=== PATIENT | female | born 1990 | race Caucasian/White ===

== ENCOUNTER 2016-12-19 20:36 | Emergency (ER) | payer BC ==
[~2016-12-19] VITALS: Ht 154.9 cm; Wt 62.8 kg
[2016-12-19 20:43] VITALS: TEMP 36.7; Ht 154.9 cm; Wt 62.8 kg
[2016-12-19 22:04] LABS: BASO % 0.1 %; BASO ABS # 0.01 K/uL (0-0.2); COMPLETE YES; EOS % 2.4 %; HEMATOCRIT 36.6 % (37-47); IG% 0.3 %; LYMPH % 21.4 %; LYMPH ABS # 2.27 K/uL (1.2-3.4); MEAN CELL VOLUME 90.1 fL (80-100); MEAN CORPUSCULAR HEMOGLOBIN 31.5 pg (25-34); MEAN PLATELET VOLUME 9.6 fL (7.4-10.4); NEUT % 67.8 %; PLATELET COUNT 195 K/uL (130-400); RED BLOOD COUNT 4.06 M/uL (4.2-5.4); WHITE BLOOD COUNT 10.62 K/uL (4.8-10.8)
[2016-12-19 22:15] LABS: ALT/SGPT 20 U/L (12-78); BLOOD UREA NITROGEN 4 mg/dl (7-18); BUN/CREATININE RATIO 8.4 (10-20); CARBON DIOXIDE 24 mmol/L (21-32); CHLORIDE 105 mmol/L (98-107); CREATININE 0.49 mg/dl (0.60-1.20); GLUCOSE 86 mg/dl (70-99); SODIUM 137 mmol/L (136-145)
[2016-12-19 22:26] LABS: ALB/GLOB RATIO 0.8 (0.9-2); ALKALINE PHOSPHATASE 74 U/L (45-117); AST/SGOT 18 U/L (15-37)
--- NOTE | 2016-12-19 22:58 | EMERGENCY ROOM VISIT NOTE ---
History First contact with patient: 21:29 Chief Complaint: CARDIAC ASSESSMENT Stated Complaint: CHEST TIGHTNESS, HEART PALPATATIONS, 24WKS PREG Nursing Triage Summary: alpitation Patient reports intermittent chest tightness and palpitations since tuesday. Denies shortness of breath, reports fatigue. Pt reports she is 24 wk . Pt does report hx iintermittent palpitations. History of Present Illness The patient is a 26 year old female who presents to the Emergency Room with complaints of palpitations. Patient states she is 24 weeks . She sees [facility]. The patient states that she has had palpitations on and off for the past 3 days. She reports that she has felt more fatigued than usual and has been lightheaded at times when she stands up from a sitting position. She has intermittent sharp pains in the left upper chest which are not associated with the palpitations. She states these are shooting pains which last for 1-2 seconds, then go away. She reports that the palpitations seem to increase during the evening and night, but did not keep her up at night. She does have 1-2 episodes during the day. She denies any complications with this . She denies any shortness of breath or syncope. Review of Systems A complete 10 point review of systems was reviewed with the patient with pertinent positives and negatives as per history of present illness. All else were negative. Social History Smoking Status: Never Smoker Current/Historical Medications No Active Prescriptions or Reported Meds Physical Exam Vital Signs Date Time Temp Pulse Resp B/P (MAP) Pulse Ox O2 Delivery O2 Flow Rate FiO2 12/19/16 23:23 74 18 122/63 97 Room Air 12/19/16 22:52 71 103/57 91 123/69 85 111/68 12/19/16 21:30 72 12/19/16 21:01 Room Air 12/19/16 20:43 36.7 84 16 131/75 100 Room Air Physical Exam VITALS: Vitals are noted on the nurse's note and reviewed by myself. Vital signs stable. GENERAL: This is a 26-year-old female, in no acute distress, nondiaphoretic, well-developed well-nourished. EARS: External auditory canals clear, tympanic membranes pearly cobos without erythema or effusion bilaterally. EYES: Pupils equal round and reactive to light and accommodation. MOUTH: Mucous membranes moist. NECK: Supple without nuchal rigidity. HEART: Regular rate and rhythm without murmurs gallops or rubs. LUNGS: Clear to auscultation bilaterally without wheezes, rales or rhonchi. ABDOMEN: Soft, nontender to palpation. NEURO: Patient was alert and oriented to person place and time. Medical Decision & Procedures Laboratory Results 12/19/16 21:10 Red Blood Count 4.06, Mean Corpuscular Volume 90.1, Mean Corpuscular Hemoglobin 31.5, Mean Corpuscular Hemoglobin Concent 35.0, Mean Platelet Volume 9.6, Neutrophils (%) (Auto) 67.8, Lymphocytes (%) (Auto) 21.4, Monocytes (%) (Auto) 8.0, Eosinophils (%) (Auto) 2.4, Basophils (%) (Auto) 0.1, Neutrophils # (Auto) 7.20, Lymphocytes # (Auto) 2.27, Monocytes # (Auto) 0.85, Eosinophils # (Auto) 0.26, Basophils # (Auto) 0.01 12/19/16 21:10 Test 12/19/16 21:10 White Blood Count 10.62 K/uL (4.8-10.8) Red Blood Count 4.06 M/uL (4.2-5.4) Hemoglobin 12.8 g/dL (12.0-16.0) Hematocrit 36.6 % (37-47) Mean Corpuscular Volume 90.1 fL (80-100) Mean Corpuscular Hemoglobin 31.5 pg (25-34) Mean Corpuscular Hemoglobin Concent 35.0 g/dl (32-36) Platelet Count 195 K/uL (130-400) Mean Platelet Volume 9.6 fL (7.4-10.4) Neutrophils (%) (Auto) 67.8 % Lymphocytes (%) (Auto) 21.4 % Monocytes (%) (Auto) 8.0 % Eosinophils (%) (Auto) 2.4 % Basophils (%) (Auto) 0.1 % Neutrophils # (Auto) 7.20 K/uL (1.4-6.5) Lymphocytes # (Auto) 2.27 K/uL (1.2-3.4) Monocytes # (Auto) 0.85 K/uL (0.11-0.59) Eosinophils # (Auto) 0.26 K/uL (0-0.5) Basophils # (Auto) 0.01 K/uL (0-0.2) RDW Standard Deviation 40.9 fL (36.4-46.3) RDW Coefficient of Variation 12.4 % (11.5-14.5) Immature Granulocyte % (Auto) 0.3 % Immature Granulocyte # (Auto) 0.03 K/uL (0.00-0.02) Anion Gap 8.0 mmol/L (3-11) Est Creatinine Clear Calc Drug Dose 145.1 ml/min Estimated GFR () > 150.0 Estimated GFR (Non- 132.6 BUN/Creatinine Ratio 8.4 (10-20) Calcium Level 9.0 mg/dl (8.5-10.1) Magnesium Level 2.0 mg/dl (1.8-2.4) Total Bilirubin 0.2 mg/dl (0.2-1) Aspartate Amino Transf (AST/SGOT) 18 U/L (15-37) Alanine Aminotransferase (ALT/SGPT) 20 U/L (12-78) Alkaline Phosphatase 74 U/L (45-117) Troponin I < 0.015 ng/ml (0-0.045) Total Protein 7.1 gm/dl (6.4-8.2) Albumin 3.2 gm/dl (3.4-5.0) Globulin 3.9 gm/dl (2.5-4.0) Albumin/Globulin Ratio 0.8 (0.9-2) Thyroid Stimulating Hormone (TSH) 1.350 uIu/ml (0.300-4.500) ECG Rate (beats per minute): 82 Rhythm: normal sinus Findings: nonspecific-ST abn, no acute ischemic change, no ectopy Comparison ECG Date: no prior available ED Course The patient was evaluated as above. Labs were drawn and IV access was obtained. Patient was reevaluated and findings were discussed. Patient denied complaints that this time. Discharge instructions were reviewed with the patient. The patient verbalized understanding of my assessment and treatment plan and was discharged home in good condition. Medical Decision Differential diagnosis includes arrhythmia, electrolyte abnormality, hyperthyroidism, anemia, dehydration, among others. The patient is a 26-year-old female who presents today complaining of palpitations. Patient is asymptomatic at the time of presentation. EKG does not show any ectopy. Labs are unremarkable, no leukocytosis, anemia or concerning electrolyte abnormalities. TSH indicates a euthyroid state. The etiology of the palpitations is unclear, but may just be related to . Orthostatic vital signs were mildly positive and this is likely causing the patient's lightheadedness when standing up. She was encouraged to increase fluids and stand up very slowly. She was advised to call her [facility] tomorrow morning to schedule a follow-up appointment for any further testing. She should return for any worsening symptoms. Based on the patient's presentation and work up, I feel the patient is stable for outpatient treatment. The patient was educated to return to the emergency department for any worsening of their current condition or new/concerning symptoms. She will follow up with [facility]. The patient's case was reviewed with Dr. Borrego, ED attending physician, who agreed with my assessment and treatment plan. Medication Reconcilliation Current Medication List: was personally reviewed by me Blood Pressure Screening Patient's blood pressure: Normal blood pressure Impression Primary Impression: Palpitations Departure Information Dispostion Home / Self-Care Condition GOOD Prescriptions No Active Prescriptions or Reported Meds Referrals Tawnya Smith D.O. (PCP) Patient Instructions [facility] Additional Instructions Follow-up with your [facility] tomorrow regarding your symptoms. Rest and stay well hydrated. Return here for any worsening palpitations, worsening pain, shortness of breath or anything new/concerning symptoms.
[2016-12-19 23:23] VITALS: BP 122/63; PULSE 74; O2SAT 97
== END 2016-12-19 23:25 | disposition home or self-care (01) ==
LOC: C.EDB 20:44
DX: R00.2 Palpitations (principal); O26.892 Other specified pregnancy related conditions, second trimester; Z3A.24 24 weeks gestation of pregnancy

== ENCOUNTER 2017-04-05 03:01 | Inpatient (IN) | payer BC, OTHER ==
[~2017-04-05] VITALS: Ht 154.9 cm; Wt 69.1 kg
[2017-04-15] MEDS ORDERED: LACTATED RINGER'S 1000ML 1,000 ML IV PRN (08:26)
--- NOTE | 2017-04-15 08:50 | Progress Note ---
Progress Note Date of Service Apr 15, 2017. Progress Note Admit Note 27 F P0000 at 41.3 weeks admitted for post-dates induction of labor. course was uncomplicated. GBS is negative. FHT Cat 1. Cervix is 1/50/-3/ vertex/posterior/firm. EFW is [address] 10 mg Cervidil for cervical ripening. Procedure discussed with patient and her .
[2017-04-15] MEDS ORDERED: DINOPROSTONE 10 MG INSERT PV ONE (09:00)
[2017-04-15 09:04] LABS: HEMATOCRIT 36.5 % (37-47); HEMOGLOBIN 13.5 g/dL (12.0-16.0); MEAN CELL VOLUME 88.8 fL (80-100); MEAN CORPUSCULAR HEMOGLOBIN 32.8 pg (25-34); MEAN PLATELET VOLUME 10.2 fL (7.4-10.4); PLATELET COUNT 148 K/uL (130-400); RED CELL DISTRIBUTION WIDTH CV 12.8 % (11.5-14.5); RED CELL DISTRIBUTION WIDTH SD 41.1 fL (36.4-46.3)
[2017-04-15] MEDS ORDERED: PREN-63 (09:30)
[2017-04-15] MEDS ORDERED: CHOL1000 PO (09:30)
[2017-04-15] MEDS ORDERED: OMEG12006 (09:30)
[2017-04-15 09:35] VITALS: Ht 154.9 cm; Wt 69.1 kg
[2017-04-15] MEDS ORDERED: NURSING VERBAL MED ORDER ONE (21:15)
[2017-04-15] MEDS ORDERED: BUTORPHANOL TARTRATE 1 MG/ML VIAL IV PRN (21:45)
[2017-04-16] MEDS: MISOPROSTOLTAB 50 MCG TAB PO SCH ×5 (00:04→16:00)
[2017-04-16] MEDS: LACTATED RINGER'S 1000ML 1,000 ML IV SCH ×2 (10:21→14:55)
[2017-04-16] MEDS: OXYTOCIN 30 UNITS/500ML NSS IV PRN (10:23)
[2017-04-16] MEDS: LACTATED RINGER'S 1000ML 500 ML IV PRN (18:16)
[2017-04-16] MEDS ORDERED: BUPIVACAINE 0.25% 30 ML VIAL ONE ×2 (19:58→22:59)
[2017-04-16] MEDS ORDERED: EpHEDrine SULFATE INJ 50 MG/ML AMP ONE (19:59)
[2017-04-16] MEDS ORDERED: FENTANYL CITRATE INJ 50 MCG/1 ML 2 ML VIAL ONE (19:59)
[2017-04-16] MEDS ORDERED: FENTANYL 2MCG/ML ROPIV 1.25MG/ML 100ML BAG EPI ONE (20:00)
[2017-04-16] MEDS ORDERED: LACTATED RINGER'S 1000ML 500 ML IV PRN (21:08)
[2017-04-16] MEDS ORDERED: NALOXONE HCL INJ 0.4 MG/1 ML VIAL/CARP IV PRN (21:15)
[2017-04-16] MEDS ORDERED: EpHEDrine SULFATE INJ 50 MG/ML AMP IV PRN (21:15)
[2017-04-16] MEDS: FENTANYL 2MCG/ML ROPIV 1.25MG/ML 100ML BAG EPI PRN (22:56)
[2017-04-17] MEDS: LACTATED RINGER'S 1000ML 500 ML IV PRN (02:43)
[2017-04-17] MEDS: FENTANYL 2MCG/ML ROPIV 1.25MG/ML 100ML BAG EPI PRN ×2 (05:34→07:00)
[2017-04-17] MEDS: LACTATED RINGER'S 1000ML 1,000 ML IV SCH (06:59)
[2017-04-17] MEDS ORDERED: NURSING VERBAL MED ORDER ONE (07:30)
[2017-04-17] MEDS ORDERED: METHYLERGONOVINE MALEATE 0.2 MG/ML AMP ONE (11:43)
[2017-04-17] MEDS ORDERED: CARBOPROST TROMETHAMINE 250 MCG/ML AMP ONE (11:45)
[2017-04-17] MEDS ORDERED: MISOPROSTOL 200 MCG TAB ONE (11:59)
[2017-04-17] MEDS: OXYTOCIN 30 UNITS/500ML NSS IV PRN (12:15)
[2017-04-17] MEDS ORDERED: MISOPROSTOL 200 MCG TAB PR SCH (12:30)
[2017-04-17] MEDS ORDERED: LANOLIN OINT EXT PRN (12:30)
[2017-04-17] MEDS ORDERED: HYDROCORTISONE ACETATE 25 MG SUPP PR PRN (12:30)
[2017-04-17] MEDS ORDERED: BENZOCAINE 20% AER SPR 82.5 GM CAN EXT PRN (12:30)
[2017-04-17] MEDS ORDERED: SUPERCREAM 0.870 % 15GM JAR EXT PRN (12:30)
[2017-04-17] MEDS ORDERED: METHYLERGONOVINE MALEATE 0.2 MG/ML AMP IM ONE (12:30)
[2017-04-17] MEDS ORDERED: OXYTOCIN 30 UNITS/500ML NSS IV PRN (12:30)
[2017-04-17] MEDS ORDERED: CARBOPROST TROMETHAMINE 250 MCG/ML AMP IM ONE (12:30)
[2017-04-17] MEDS ORDERED: ONDANSETRON INJ 2 MG/ML 2 ML VIAL ONE (12:44)
[2017-04-17] MEDS ORDERED: ONDANSETRON INJ 2 MG/ML 2 ML VIAL IV PRN (12:45)
[2017-04-17] MEDS ORDERED: OXYTOCIN INJ 20 UNITS in LACTATED RINGER'S 1000ML 1,000 ML IV SCH (14:00)
--- NOTE | 2017-04-17 14:47 | Anesthesia Procedure Note ---
Anesthesia Epidural Removal Nt Date & Time Apr 17, 2017 at 14:47 Vital Signs Pain Intensity: 0.0 Notes Mental Status: alert / awake / arousable, participated in evaluation Nausea / Vomiting: adequately controlled Pain: adequately controlled Airway Patency, RR, SpO2: stable & adequate BP & HR: stable & adequate Hydration State: stable & adequate Neuraxial Anesthesia: was administered, sensory block is resolving Anesthetic Complications: no major complications apparent, pt satisfied with anesthetic care Epidural: removed without complications, with tip intact
[2017-04-17 16:10] LABS: HEMATOCRIT 32.1 % (37-47); HEMOGLOBIN 11.5 g/dL (12.0-16.0)
[2017-04-17] MEDS: IBUPROFEN 600 MG TAB PO PRN ×2 (17:27→23:47)
[2017-04-17 18:15] VITALS: BP 122/78; PULSE 78; TEMP 37.1
[2017-04-17] MEDS: ACETAMINOPHEN 325 MG TAB PO PRN ×2 (18:23→23:52)
[2017-04-17 20:00] VITALS: BP 129/85; PULSE 75; TEMP 37.3
[2017-04-17] MEDS: DOCUSATE SODIUM 100 MG CAP PO SCH (20:32)
--- NOTE | 2017-04-17 23:35 | DELIVERY SUMMARY ---
DATE OF OPERATION: 04/17/2017 DELIVERY NOTE The patient delivered a live male in left occiput anterior presentation. There was a loose nuchal cord which was easily reduced. was delivered, cord was clamped and cut and the handed over to the pediatric team. Apgars was 8 and 9. Placenta was spontaneously delivered after cord gases and cord blood was obtained. Inspection of the placenta showed a normal placenta. There was no meconium seen on the placenta. There was a 3-vessel cord. The patient had heavy vaginal bleeding after the was delivered. The uterus was firm. Bleeding was controlled with massage, Pitocin, Methergine, Cytotec and Hemabate. The bleeding eventually improved. Inspection of the perineum showed a second-degree midline laceration. There was no significant bleeding seen from the cervix. The rest of the vaginal exam was unremarkable. The laceration was repaired in layers with 2-0 Vicryl. Rectal exam post repair showed good sphincter tone. There were no sutures palpated in the rectum. Estimated blood loss was about 500 mL. Baby and mother are doing well in recovery. All instruments are removed from the vagina including retractors, sponges and needles. NEREYDA
[2017-04-17 23:40] VITALS: BP 106/68; PULSE 70; TEMP 36.6
[2017-04-17] MEDS: OXYCODONE/ACETAMINOPHEN 5-325 TAB PO PRN ×2 (23:48→23:49)
[2017-04-18 04:40] VITALS: BP 105/62; PULSE 75; TEMP 36.5
[2017-04-18 07:52] VITALS: BP 116/70; PULSE 69; TEMP 36.9; O2SAT 98
[2017-04-18 07:52] LABS: HEMATOCRIT 25.8 % (37-47)
[2017-04-18] MEDS: DOCUSATE SODIUM 100 MG CAP PO SCH ×2 (08:45→19:31)
[2017-04-18] MEDS: FERROUS SULFATE 325 MG TAB PO SCH (08:45)
[2017-04-18] MEDS: IBUPROFEN 600 MG TAB PO PRN ×3 (08:47→19:31)
[2017-04-18] MEDS: ACETAMINOPHEN 325 MG TAB PO PRN ×3 (08:48→20:32)
--- NOTE | 2017-04-18 09:48 | OB/GYN Progress Note ---
LAND SURVEYOR ASSISTANT Progress Note Date of Service Apr 18, 2017. Subjective conversation w/ patient, physical exam Ambulation: ambulating normally Voiding: no voiding problems Passing Gas: Yes Diet Tolerance: Regular Diet Lochia: Small Feeding Type: Breast Feeding Objective Vital Signs Date Time Temp Pulse Resp B/P (MAP) Pulse Ox O2 Delivery O2 Flow Rate FiO2 04/18/17 04:40 36.5 75 18 105/62 (76) Room Air 04/17/17 23:40 Room Air 04/17/17 23:40 36.6 70 18 106/68 (81) Room Air 04/17/17 20:00 37.3 75 18 129/85 (100) Room Air 04/17/17 18:15 Room Air 04/17/17 18:15 37.1 78 18 122/78 (93) Room Air Physical Exam General Appearance: WELL-APPEARING, NO APPARENT DISTRESS Abdomen: non tender, soft Fundus: Firm Extremities: non-tender, normal inspection Laboratory Results Last 24 Hours Test 04/17/17 15:51 04/18/17 07:30 Hemoglobin 11.5 g/dL 9.0 g/dL Hematocrit 32.1 % 25.8 % Assessment and Plan Post- Day Number: 1 Continue Routine Care: tent d/c in AM
[2017-04-18 11:03] VITALS: BP 118/80; PULSE 81; TEMP 37.1; O2SAT 97
[2017-04-18 16:35] VITALS: BP 128/84; PULSE 78; TEMP 36.6; O2SAT 100
[2017-04-18] MEDS ORDERED: BISACODYL 5 MG TABEC PO SCH (20:00)
[2017-04-18 23:39] VITALS: BP 121/74; PULSE 82; TEMP 36.4
[2017-04-19] MEDS: IBUPROFEN 600 MG TAB PO PRN ×2 (00:48→08:29)
[2017-04-19] MEDS ORDERED: BISACODYL 10 MG SUPP PR PRN (07:00)
--- NOTE | 2017-04-19 07:35 | OB/GYN Progress Note ---
PHYSICIAN SUPPORT COORDINATOR Progress Note Date of Service Apr 19, 2017. Subjective conversation w/ patient, physical exam Ambulation: ambulating normally Voiding: no voiding problems Passing Gas: Yes Diet Tolerance: Regular Diet Lochia: Moderate Feeding Type: Breast Feeding Pain: 4/10 Notes: Doing well. Pain well controlled. Ambulating without difficulty. Tolerating regular diet. Lochia moderate. Objective Vital Signs Date Time Temp Pulse Resp B/P (MAP) Pulse Ox O2 Delivery O2 Flow Rate FiO2 04/18/17 23:41 Room Air 04/18/17 23:39 36.4 82 18 121/74 (90) Room Air 04/18/17 16:35 36.6 78 18 128/84 (99) 100 Room Air 04/18/17 16:35 Room Air 04/18/17 11:03 37.1 81 18 118/80 (93) 97 Room Air 04/18/17 07:52 36.9 69 16 116/70 (85) 98 Room Air 04/18/17 07:52 98 Room Air Physical Exam General Appearance: WELL-APPEARING Respiratory/Chest: chest non-tender, lungs clear Cardiovascular: regular rate, rhythm Abdomen: normal bowel sounds, soft Fundus: Firm Extremities: normal range of motion, non-tender, no calf tenderness Laboratory Results Last 24 Hours Test 04/19/17 04:44 Assessment and Plan Post- Day Number: 2 Continue Routine Care: -D/C home today -F/U in 6 week.
[2017-04-19] MEDS ORDERED: MTR600X PO (07:36)
--- NOTE | 2017-04-19 07:37 | Discharge Instructions ---
Discharge Instructions Date of Service Apr 19, 2017. Admission Reason for Admission: Induction Discharge Discharge Diagnosis / Problem: Vaginal Delivery Discharge Goals Goal(s): Routine recovery after delivery Medications Continue Dispensed Medications: supercream, dermaplast, tucks, lansinoh Activity Recommendations Activity Limitations: per Instructions/Follow-up section . Instructions / Follow-Up Instructions / Follow-Up ACTIVITY RECOMMENDATIONS: * Gradual return to full activity over the next 2-3 weeks. * No lifting - nothing heavier than baby over the next 2-3 weeks. * Do not engage in vigorous exercise, sexual activity or sports until cleared by your physician. * Do not drive or operate any motorized equipment until cleared by your physician. * You may shower/bathe daily. BREAST CARE: If you are not breast feeding: * Wear a supportive bra 24 hours a day for one to two weeks. * Avoid stimulating your breasts and nipples as much as possible during the first few weeks after delivery. * When taking a shower, have the warm water hit your back, not breasts. * When your breasts feel full, apply ice packs. Usually three to four times a day helps ease the discomfort. * Take a mild pain medication (Tylenol/Motrin) when you are uncomfortable. If breast feeding: * Use breast milk to lubricate nipples. Lansinoh cream may be used for sore nipples. You do not need to remove cream prior to breast feeding. If using a different brand of cream, check the label for directions regarding removal of cream prior to nursing. * Wear a supportive bra. * If having problems with breasts or breast feeding, call a hearing aid consultant or your health care provider. EPISIOTOMY CARE: After delivery, if you have an episiotomy (stitches), the following steps will ease discomfort and aid healing. * For the first 24 hours after delivery, place ice packs next to your episiotomy to help reduce swelling. * After the first 24 hour-period, sitz baths, either portable or in the tub, are suggested. A shower with a shower arm sprayed over the episiotomy may be comforting. * Chrissy care should be done after each voiding and bowel movement. Squirt warm water from a plastic bottle over the perineum (region of the body between the anus and urinary opening) and pat dry. * Use Dermoplast to ease discomfort. Shake container. [place] directly over the episiotomy. * Place a Tucks on a clean sanitary pad next to your episiotomy. OVER THE COUNTER MEDICATION: * For discomfort or pain, you may use Acetaminophen (Tylenol), Ibuprofen (Advil ), or Naproxen (Aleve) following the package directions. * For constipation you may use Colace following the package directions. SPECIAL CARE INSTRUCTIONS: When you are discharged from the hospital, it is important for you to follow the instructions listed below: * During the first week at home, you should be able to care for yourself and your baby. In addition, the usual light household activities are encouraged. * Limit your activities to the way you feel. Do not try to clean the house or move furniture. Be sensible. * If you actively engage in sports and have done so up until the time of your delivery, you may resume these activities as soon as you feel able. This may take up to one month or even longer. Use good judgment. * Continue to take your vitamins for at least six weeks after the of your baby. * Your diet need not be limited unless you were on a special diet before your delivery. Breast-feeding mothers need around 2500 calories per day and at least 64-80 ounces of fluid per day (8 to 10 glasses). * You should eat foods from the four major food groups. Crash diets or fad diets are to be avoided. Eating lean meats, fresh fruits and vegetables, low-fat dairy products, high fiber foods and a regular exercise program, will help you get back to your pre- weight without putting your health at risk. * Constipation is sometimes a problem after delivery. Take a mild laxative as needed. If breast feeding, Milk of Magnesia is acceptable to use. You may use a suppository or Fleets enema if no episiotomy. * A daily shower or tub bath is suggested. Be sure to thoroughly and gently dry the perineum. * A bloody vaginal discharge will usually continue until around four weeks post . A small amount of bleeding may continue for as long as six weeks. Vaginal discharge changes from the bright red bleeding after delivery to pink then brownish and finally yellowish-pink before becoming white and disappearing. * Bleeding may increase with activity. Your first period may come in 4-8 weeks. If you are breast feeding, your period may be delayed even longer. * [place] (sex) can begin whenever both you and your partner feel comfortable and do not have any form of genital infection. It is recommended that you wait until after your return appointment and discuss with your physician. If you have questions, please talk to your health care practitioner. A condom should be used to prevent infection and . * Foreplay, gentle intercourse and lubrication is very important the first several times to prevent pain. A water-based lubricant such as K-Y jelly or Astroglide may be used. * Tampons may be used six weeks after delivery. * Douching should be avoided for 6 weeks after delivery. * If you have RH negative blood and your baby is RH positive, you will receive RHOGAM by injection prior to discharge. The nurse will give you a card to keep with you that has the date and place that you received RHOGAM after delivery. * During your care, you had a Rubella screen done to check for the presence of rubella antibodies in your blood. If your test was negative, you will receive a Rubella vaccine prior to discharge. This vaccine may cause a fever, soreness at the injection site and flu-like symptoms. If these symptoms persist, notify your health care practitioner. is not advised for three months after a Rubella vaccine. There is a higher chance of having a baby with defects if conceived within three months of getting the vaccine. * If you were discharged 24 hours from delivery or before 48 hours: Visiting nurses will come to your home 48 hours after discharge to assess you and your baby. The visiting nurse will meet with you while you are in the hospital to arrange a time and get directions to your home. * Verbalizes understanding of car seat law as reviewed with patient nursing. * Car Seat hand-out given and reviewed with patient by nursing. * Shaken baby information reviewed with patient by nursing. Call you doctor if: * Heavy bleeding (saturating several pads an hour) or passing clots the size of your fist. * A fever >101 degrees F (38.3 degrees C) on two occasions four hours apart and/or chills. * Unusual pain in the pelvic or vaginal areas. * "Baby Blues" lasting longer than two weeks. If you have any questions or concerns, call your health care practitioner at . FOLLOW-UP VISIT: * Please call the office at to schedule a 6 week examination. It is important you keep this appointment. * It is important for you to make arrangements for either yearly or twice yearly check-ups thereafter. Current Hospital Diet Patient's current hospital diet: Regular OB Diet Discharge Diet Recommended Diet: Regular OB Diet Pending Studies Studies pending at discharge: no Medical Emergencies . Who to Call and When: Medical Emergencies: If at any time you feel your situation is an emergency, please call 911 immediately. . Non-Emergent Contact Non-Emergency issues call your: Primary Care Provider, [employer] . . "Provider Documentation" section prepared by Garry Smith. . VTE Core Measure Inpt VTE Proph given/why not?: Treatment not indicated
[2017-04-19 08:00] VITALS: BP 138/84; PULSE 73; TEMP 36.5
[2017-04-19] MEDS: FERROUS SULFATE 325 MG TAB PO SCH (08:27)
[2017-04-19] MEDS: DOCUSATE SODIUM 100 MG CAP PO SCH (08:27)
[2017-04-19] MEDS: ACETAMINOPHEN 325 MG TAB PO PRN (08:29)
[2017-04-19 08:35] LABS: HEMATOCRIT 28.6 % (37-47); HEMOGLOBIN 9.8 g/dL (12.0-16.0); MEAN CELL VOLUME 89.9 fL (80-100); MEAN CORPUSCULAR HEMOGLOBIN 30.8 pg (25-34); MEAN CORPUSCULAR HGB CONC 34.3 g/dl (32-36); MEAN PLATELET VOLUME 9.6 fL (7.4-10.4); PLATELET COUNT 158 K/uL (130-400); RED CELL DISTRIBUTION WIDTH CV 13.1 % (11.5-14.5); RED CELL DISTRIBUTION WIDTH SD 42.3 fL (36.4-46.3); WHITE BLOOD COUNT 8.67 K/uL (4.8-10.8)
[2017-04-19 11:40] VITALS: BP 142/89; PULSE 62
[2017-04-19 11:45] VITALS: BP_DIAS 89; PULSE 62; TEMP 36.5
== END 2017-04-19 13:20 | disposition home or self-care (01) | DRG 775 ==
LOC: C.LD 04-15 08:04 → C.OBG 04-17 20:45
PROVIDERS: ADMIT Obstetrics & Gynecology; ATTEND Obstetrics & Gynecology
PROC: 3E033VJ Introduction of Other Hormone into Peripheral Vein, Percutaneous Approach (ICD-10-PCS; principal; 2017-04-15)
PROC: 10E0XZZ Delivery of Products of Conception, External Approach (ICD-10-PCS; principal; 2017-04-15)
PROC: 0WQNXZZ Repair Female Perineum, External Approach (ICD-10-PCS; principal; 2017-04-15)
DX: O48.0 Post-term pregnancy (principal); Z3A.41 41 weeks gestation of pregnancy; O69.81X0 Labor and delivery complicated by cord around neck, without compression, not applicable or unspecified; O70.1 Second degree perineal laceration during delivery; Z37.0 Single live birth

== ENCOUNTER 2020-04-04 08:28 | Inpatient (IN) ==
[2020-04-04] MEDS ORDERED: OXYTOCIN 30 UNITS/500 ML BAG IV PRN ×3 (08:56→18:42)
--- NOTE | 2020-04-04 09:05 | History & Physical Report ---
Date of Service April 04, 2020 Assessment & Plan (1) Small for dates affecting management of mother: 30 yo at 39.6 wks, scheduled IOL for SGA VSS Afebrile, doing well FHR reassuring GBS negative Plan to jak, labs, monitor, IV pitocin, AROM when able Plans for epidural All questions were answered Admission and Anticipated Discharge Date Admission Date: April 04, 2020 History of Present Illness Primary Care Provider: Tawnya Smith DO Patient is a 30 yo t 39.6 wks who was scheduled for IOL at term for SGA, US last week showed 2800 gr fetus, measurements 2 weeks behind Her otherwise was uncomplicated Mild irregular ctxs for few days No LOF/VB FM's Denies medical problems GBS negative No COVID symptoms Allergies Allergy/AdvReac Type Severity Reaction Status Date / Time amoxicillin Allergy Intermediate RASH Verified 04/04/20 08:35 lavender (Lavandula Allergy Intermediate RASH Verified 04/04/20 08:35 angustifolia) pseudoephedrine AdvReac Intermediate HEART PALPS Verified 04/04/20 08:35 Home Medications Medication Instructions Recorded Confirmed Type nitrofurantoin monohyd/m-cryst 100 mg PO BID 08/12/18 04/04/20 History [Macrobid] prenat.vits,suhas,rth-kjmy-ogbhj 1 tab PO DAILY 04/04/20 04/04/20 History [ #2] Patient History Medical History No significant past medical history Surgical History No significant past surgical history Social History Smoking Status: Never smoker Hx Alcohol Use: No Hx Substance Use: No Preferred Language: Swedish Communication Ability: Effective Visual Impairment: Partially Limited Hearing Ability: Normal Laborer High Density Press Required: No Beliefs That Will Affect Care: None marital status: marital status details: Chinedu Current Living Situation: Spouse and Family current occupational status: employed current occupation: [employer] Feels Safe at Home: Yes Safety Concerns: Feels Safe At This Time Childhood Exposure to Second-Hand Smoke: No Do you think of yourself as: straight/heterosexual Sexual Activity: has been sexually active within the last 12 months Gender Identity: Female OB History FT in 2018 [employer] RUNNER History No h/o STD's, no HSV/ Chlamydia/ GC Review of Systems All systems reviewed & are unremarkable except as noted in HPI & below Physical Exam Constitutional: WD/WN, vitals as above well developed Comfotable, NAD Gastrointestinal (Abdomen): normal bowel sounds, soft, nontender, no hepatosplenomegaly (Gravid, Malik 6-7 lb) Genitourinary: normal external appearance OB Exam Abdomen: + vertex ( response to scalp stimulation) Manual OB Exam: + cervical dilation 3 cm, + cervical effacement 30% and + station high OB Exam Monitor Tracing: + category I Results & Data ([facility]) Vital Signs (Past 12 Hours) Vital Signs Pulse Resp BP 04/04/20 08:43 81 126/68 04/04/20 08:29 18
[2020-04-04 09:33] LABS: Hematocrit (blood only) 37.6 % (37-47); Hemoglobin 12.8 g/dL (12.0-16.0); Mean Corpuscular Hemoglobin 30.8 pg (25-34); Mean Corpuscular Volume 90.6 fL (80-100); Mean Platelet Volume 10.3 fL (7.4-10.4); Platelet Count 150 K/uL (130-400); RDW Standard Deviation 42.4 fL (36.4-46.3); Red Blood Count 4.15 M/uL (4.2-5.4); White Blood Count 7.98 K/uL (4.8-10.8)
[2020-04-04] MEDS: LACTATED RINGER'S 1,000 ML IV PRN ×3 (09:46→17:47)
--- NOTE | 2020-04-04 14:44 | Obstetrical Progress Note ---
Date of Service April 04, 2020 Assessment & Plan Admission and Anticipated Discharge Date Admission Date: April 04, 2020 Subjective Patient is reevaluated Has been feeling ctxs but declined epidural VE; 4/ 50%/ -2, tight bulging bag, AROM'ed, clear fluid FHR categ I [place]: ctxs q 2-3 min, pitocin is at 12 miu/min Continue to monitor Results & Data ([facility]) Vital Signs (Past 12 Hours) Vital Signs Temp Pulse Resp BP 04/04/20 14:30 18 04/04/20 14:00 18 04/04/20 13:30 18 04/04/20 13:00 18 04/04/20 11:56 18 04/04/20 11:16 83 134/79 04/04/20 11:15 37.6 C H 18 04/04/20 10:30 18 04/04/20 10:00 18 04/04/20 09:30 18 04/04/20 09:04 36.6 C 18 04/04/20 09:00 18 04/04/20 08:45 36.6 C 81 18 126/68 04/04/20 08:43 81 126/68 04/04/20 08:29 18
[2020-04-04] MEDS ORDERED: ePHEDrine sulfate 50 MG/ML AMP ONE (17:14)
[2020-04-04] MEDS ORDERED: SODIUM CHLORIDE 0.9% INJ 10 ML VIAL ONE (17:14)
[2020-04-04] MEDS ORDERED: BUPIVACAINE 0.25% 30 ML VIAL ONE (17:15)
[2020-04-04] MEDS ORDERED: fentaNYL citrate 100 MCG/2 ML VIAL ONE (17:15)
[2020-04-04] MEDS ORDERED: fentaNYL 2MCG/ML ROPIVACAINE 1.25MG/ML 100 ML BAG EPI ONE (17:16)
[2020-04-04] MEDS ORDERED: NALOXONE HCL 0.4 MG/1 ML VIAL/CARP IV PRN (17:20)
[2020-04-04] MEDS ORDERED: diphenhydrAMINE 50 MG/ML VIAL IV PRN (17:20)
[2020-04-04] MEDS ORDERED: ePHEDrine sulfate 50 MG/ML AMP IV PRN (17:20)
[2020-04-04] MEDS ORDERED: fentaNYL 2MCG/ML ROPIVACAINE 1.25MG/ML 100 ML BAG EPI PRN (17:20)
[2020-04-04] MEDS ORDERED: NALOXONE HCL 1 MG in SODIUM CHLORIDE 0.9% 1000ML 1,000 ML IV PRN (17:20)
[2020-04-04] MEDS ORDERED: ONDANSETRON INJ 2 MG/ML 2 ML VIAL IV PRN (17:20)
--- NOTE | 2020-04-04 17:22 | Anesthesiology Consultation ---
Date of Service April 04, 2020 Assessment & Plan (1) Encounter for pre-operative examination: Chart Review Chart Review: Patient NOT seen in Pre Admission Testing and Acceptable Risk for Labor Epidural Consults Requested none History Height/Weight Height: 5 ft 1 in Weight: 68.5 kg Allergies Allergy/AdvReac Type Severity Reaction Status Date / Time amoxicillin Allergy Intermediate RASH Verified 04/04/20 08:35 lavender (Lavandula Allergy Intermediate RASH Verified 04/04/20 08:35 angustifolia) pseudoephedrine AdvReac Intermediate HEART PALPS Verified 04/04/20 08:35 Medications Home Medications Medication Instructions Recorded Confirmed Last Taken nitrofurantoin monohyd/m-cryst 100 mg PO BID 08/12/18 04/04/20 02/26/20 [Macrobid] prenat.vits,suhas,dpx-qzjb-gvcbr 1 tab PO DAILY 04/04/20 04/04/20 04/04/20 [ #2] Active Medications Generic Name Dose Route Start Last Admin Trade Name Freq PRN Reason Stop Dose Admin Lactated Ringer's 1,000 mls @ 150 mls/hr 04/04/20 08:56 04/04/20 16:14 Lr IV 04/06/20 08:55 999 mls/hr .[id number] PRN Administration L&D Protocol Protocol Oxytocin 30 units in 500 mls @ 14 mls/hr 04/04/20 08:58 04/04/20 16:49 Pitocin IV 04/06/20 08:57 0.84 units/hr .Q24H PRN 14 mls/hr Labor Induction/Augmentation Titration Protocol 0.84 UNITS/HR Past Medical History Medical History No significant past medical history Exercise / Class Metabolic Activity II 4-5 Yardwork/Stairs/Walk up hill Past Surgical History Surgical History No significant past surgical history Past Anesthesia History No Hx of Anesthesia Complications and No Family Hx of Anesthesia Complications History of PONV No Hx of PONV and No Hx of Motion Sickness Social History Smoking Status: Never smoker Do You Dip or Chew Tobacco: No Hx Alcohol Use: No Hx Substance Use: No Physical Exam Vital Signs Last Vital Signs Temp 37.2 C 04/04/20 16:12 Pulse 93 H 04/04/20 17:42 Resp 18 04/04/20 16:12 BP 131/66 04/04/20 17:41 Pulse Ox 100 04/04/20 17:42 Testing Laboratory Results 04/04/20 09:01
[2020-04-04] MEDS ORDERED: MINERAL OIL 30 ML UDC ONE (18:21)
[2020-04-04] MEDS ORDERED: miSOPROStoL 200 MCG TAB ONE (18:36)
[2020-04-04] MEDS ORDERED: DIPHTHERIA/TETANUS/PERTUSSIS 0.5 ML SYR/VIAL IM ONE (18:42)
[2020-04-04] MEDS ORDERED: BENZOCAINE 20% AER SPR 82.5 GM CAN EXT PRN (18:42)
[2020-04-04] MEDS ORDERED: HYDROCORTISONE ACETATE 25 MG SUPP PR PRN (18:42)
[2020-04-04] MEDS ORDERED: MEASLES, MUMPS & RUBELLA VIRUS VIAL SQ ONE (18:42)
[2020-04-04] MEDS ORDERED: bisacodyL 10 MG SUPP PR PRN (18:42)
[2020-04-04] MEDS ORDERED: ACETAMINOPHEN 325 MG TAB PO PRN (18:42)
[2020-04-04] MEDS ORDERED: ceFAZolin 2000MG 2,000 MG/15 ML SYR IV STA (18:42)
[2020-04-04] MEDS ORDERED: SUPERCREAM 0.870% 15 GM JAR EXT PRN (18:42)
[2020-04-04] MEDS ORDERED: miSOPROStoL 200 MCG TAB PR ONE (18:42)
--- NOTE | 2020-04-04 20:06 | Anesthesia Procedure Note ---
Date of Service April 04, 2020 Anesthesia Post Epidural Note Vital Signs Vital Signs: Temp Pulse Resp BP Pulse Ox 36.8 C 65 18 116/63 96 04/04/20 19:00 04/04/20 19:56 04/04/20 19:30 04/04/20 19:56 04/04/20 18:57 Pain Intensity Lower Abdomen: Pain Intensity: 0 Notes Mental Status: alert / awake / arousable and participated in evaluation Patient Amnestic to Procedure: No Nausea / Vomiting: adequately controlled Pain: adequately controlled Airway Patency, RR, SpO2: stable & adequate BP & HR: stable & adequate Hydration State: stable & adequate Neuraxial Anesthesia: was administered and sensory block is resolving Anesthetic Complications: no major complications apparent and Pt Satisfied with anesthetic care Epidural: Removed without complications and With tip intact
--- NOTE | 2020-04-05 | Delivery Summary ---
DATE OF OPERATION: 04/04/2020 DETAILS OF DELIVERY: The patient was found to be fully dilated and she desired to push. She pushed through 3 contractions and delivered the head without difficulty. There was a nuchal cord around the neck x1 which was reduced. Shoulders were delivered with minimal traction. Baby was handed to the mother where mouth and nose were suctioned. Cord was clamped x2 and cut. Cord blood was obtained. Vagina and perineum were checked for lacerations. There was a very small superficial first-degree laceration at the skin edge of the posterior fourchette, which was repaired with 3-0 Vicryl and with a [id number] stitch x1, it was hemostatic. Rest of the vagina, labia, and perineum were intact and placenta was found to be in the vagina, delivered spontaneous as intact and complete. Uterus was explored. There were found to be some pieces of membranes, they were removed completely and uterus felt empty. Fundus was firm. EBL was 300 mL. Mom and baby tolerated the procedure well. Sponge, lap, needle count was correct x2. Baby was a viable female , Apgars 8/9. No complications happened. I was present during whole procedure. I attest to the content of the Intraoperative Record and any orders documented therein. Any exceptions are noted below. NEREYDA
[2020-04-05] MEDS: IBUPROFEN 600 MG TAB PO PRN ×4 (00:19→20:47)
[2020-04-05 07:13] LABS: Hemoglobin 11.2 g/dL (12.0-16.0); Mean Corpuscular Hemoglobin 31.5 pg (25-34); Mean Corpuscular Volume 90.1 fL (80-100); Mean Platelet Volume 10.3 fL (7.4-10.4); Platelet Count 154 K/uL (130-400); RDW Coefficient of Variation 12.8 % (11.5-14.5); Red Blood Count 3.55 M/uL (4.2-5.4)
--- NOTE | 2020-04-05 09:18 | Obstetrical Progress Note ---
Date of Service April 05, 2020 PPD#1 stable doing well out of bed tolerating diet Assessment & Plan Admission and Anticipated Discharge Date Admission Date: April 04, 2020 Physical Exam Constitutional: WD/WN, vitals as above well developed and comfortable abdomen soft and non-tender fundus firm no edema neg Emily's tent d/c in AM Results & Data ([facility]) Vital Signs (Past 12 Hours) Vital Signs Temp Pulse Resp BP 04/05/20 04:00 36.9 C 71 16 123/75 04/05/20 00:15 36.6 C 88 18 128/78 Laboratory Results Laboratory Results - last 72 hr 04/04/20 04/04/20 04/04/20 09:01 Unknown Unknown WBC 7.98 RBC 4.15 L Hgb 12.8 Hct 37.6 MCV 90.6 MCH 30.8 MCHC 34.0 RDW Std Deviation 42.4 RDW Coeff of Cristiano 13.0 Plt Count 150 MPV 10.3 COVID-19 Eval Order Covid19 [facility] SARS-CoV-2, RNA, NAAT NEGATIVE 04/05/20 06:18 WBC 11.60 H RBC 3.55 L Hgb 11.2 L Hct 32.0 L MCV 90.1 MCH 31.5 MCHC 35.0 RDW Std Deviation 42.0 RDW Coeff of Cristiano 12.8 Plt Count 154 MPV 10.3 COVID-19 Eval Order SARS-CoV-2, RNA, NAAT
[2020-04-05] MEDS: DOCUSATE SODIUM 100 MG CAP PO SCH ×2 (10:05→20:47)
[2020-04-05] MEDS: PRENATAL VITAMIN 1 TAB PO SCH (10:05)
[2020-04-05] MEDS: FERROUS SULFATE 325 MG TAB PO SCH (10:05)
[2020-04-05] MEDS ORDERED: bisacodyL 5 MG TABEC PO SCH (20:00)
[2020-04-06 00:32] VITALS: O2SAT 100
[2020-04-06] MEDS: IBUPROFEN 600 MG TAB PO PRN (06:28)
[2020-04-06 07:25] LABS: Hematocrit (blood only) 35.8 % (37-47); Hemoglobin 12.2 g/dL (12.0-16.0)
[2020-04-06 07:45] VITALS: BP 121/72; PULSE 81; TEMP 98.2
--- NOTE | 2020-04-06 07:54 | Obstetrical Progress Note ---
Date of Service April 06, 2020 Assessment & Plan Admission and Anticipated Discharge Date Admission Date: April 04, 2020 Subjective PPD#2 stable doing well out of bed tolerating diet passing gas Physical Exam Constitutional: WD/WN, vitals as above comfortable abdomen soft and non- tender fundus firm neg Emily's for discharge Results & Data ([facility]) Vital Signs (Past 12 Hours) Vital Signs Temp Pulse Resp BP Pulse Ox 04/06/20 07:38 36.8 C 81 18 121/72 04/05/20 23:10 36.3 C L 67 18 121/77 100 04/05/20 19:55 36.8 C 68 20 116/74 99 Laboratory Results 04/04/20 04/04/20 04/04/20 09:01 Unknown Unknown WBC 7.98 RBC 4.15 L Hgb 12.8 Hct 37.6 MCV 90.6 MCH 30.8 MCHC 34.0 RDW Std Deviation 42.4 RDW Coeff of Cristiano 13.0 Plt Count 150 MPV 10.3 COVID-19 Eval Order Covid19 [facility] SARS-CoV-2, RNA, NAAT NEGATIVE 04/05/20 04/06/20 06:18 07:11 WBC 11.60 H RBC 3.55 L Hgb 11.2 L 12.2 Hct 32.0 L 35.8 L MCV 90.1 MCH 31.5 MCHC 35.0 RDW Std Deviation 42.0 RDW Coeff of Cristiano 12.8 Plt Count 154 MPV 10.3 COVID-19 Eval Order SARS-CoV-2, RNA, NAAT
[2020-04-06] MEDS: FERROUS SULFATE 325 MG TAB PO SCH (08:44)
[2020-04-06] MEDS: PRENATAL VITAMIN 1 TAB PO SCH (08:44)
[2020-04-06] MEDS: DOCUSATE SODIUM 100 MG CAP PO SCH (08:47)
== END 2020-04-06 11:05 | disposition home or self-care (01) | DRG 807 ==
LOC: 4S1 08:28 → 4S2 22:14